=== PATIENT | female | born 1990 | race Two or more races ===

== ENCOUNTER 2023-10-17 09:10 | Outpatient (CLI) | payer OTHER | END 2023-10-17 09:12 | disposition home or self-care (01) | LOC: PRENATAL 09:10 | PROVIDERS: ATTEND Obstetrics & Gynecology Maternal & Fetal Medicine | DX: O26.843 Uterine size-date discrepancy, third trimester (principal); O36.8130 Decreased fetal movements, third trimester, not applicable or unspecified; Z3A.32 32 weeks gestation of pregnancy ==

== ENCOUNTER 2023-11-30 08:37 | Inpatient (IN) | payer OTHER ==
[2023-11-30] VITALS (9 sets, daily range): BP systolic 120–150; BP diastolic 71–89
[~2023-11-30] VITALS: Ht 167.6 cm; Wt 79.4 kg
[2023-11-30] MEDS ORDERED: RINGERS SOLUTION,LACTATED 1,000 ML IV SCH (09:00)
[2023-11-30] MEDS ORDERED: VALACYCLOVIR500 MG PO (09:05)
[2023-11-30] MEDS ORDERED: PRENATAL + DHA1 EAC1 PO (09:06)
[2023-11-30 09:42] LABS: PH,URINE 5.5 (5.0-8.0); URINE APPEARANCE Cloudy; URINE BILIRRUBIN Negative (NEGATIVE); URINE BLOOD Negative; URINE COLOR Yellow; URINE GLUCOSE Negative (NEGATIVE); URINE KETONE Trace (NEGATIVE); URINE LEUKOCYTE Negative; URINE NITRATE Negative; URINE PROTEIN Trace (NEGATIVE); URINE UROBILINOGEN 0.2 E.U./dl
[2023-11-30 09:42] LABS: HEMATOCRIT 35.3 % (36.0-45.00); HEMOGLOBIN 11.6 g/dL (12.0-15.00); MEAN CELL VOLUME 86.3 fL (80.00-100.00); MEAN CORPUSCULAR HEMOGLOBIN 28.3 pg (27.00-32.0); MEAN CORPUSCULAR HGB CONC 32.8 g/dl (32.0-36.0); PLATELET COUNT 239 K/uL (150-450); RED BLOOD COUNT 4.08 M/uL (4.00-6.00); RED CELL DISTRIBUTION WIDTH 13.4 % (11.5-14.5)
[2023-11-30 09:46] LABS: URINE BACTERIA 666.5 uL (0.0-1933); URINE EPITHELIAL CELLS 127.8 uL (0.0-38.8); URINE RBC 4.5 uL (0.0-20.8); URINE WBC 17.4 uL (0.0-23.2)
[2023-11-30 10:01] LABS: INR < 0.93; PARTIAL THROMBOPLASTIN TIME 24.7 SECONDS (22.0-34.0); PROTHROMBIN TIME 10.2 SECONDS (9.0-11.5)
[2023-11-30 10:05] LABS: ALBUMIN 2.7 gm/dL (3.4-5.0); BILIRUBIN TOTAL 0.27 mg/dL (0.3-1.2); CALCIUM 8.7 mg/dL (8.5-10.1); CREATININE SERUM 0.54 mg/dL (0.55-1.02); GFR 128.47; GLOBULINA 3.8 G/DL (2.4-3.5); POTASSIUM 3.75 mEq/L (3.5-5.1); TOTAL PROTEIN 6.5 gm/dL (6.4-8.2)
[2023-11-30] MEDS ORDERED: IBUprofen 400 MG TABLET PO PRN (12:00)
[2023-11-30] MEDS ORDERED: OXYTOCIN 1,000 ML IV SCH (12:00)
[2023-11-30] MEDS ORDERED: CHLORHEXIDINE GLUCONATE 120 ML BOTTLE TOP SCH (12:00)
[2023-11-30] MEDS ORDERED: ACETAMINOPHEN 500 MG GEL..CAP PO PRN (12:00)
[2023-11-30] MEDS ORDERED: LIDOCAINE HCL 1% 10ML VIAL IJ ONE (12:15)
[2023-11-30] MEDS ORDERED: ERYTHROMYCIN BASE OPHT 1GM EACH TUBE OP ONE (12:15)
[2023-12-01] VITALS: BP 117/74
[2023-12-01 08:28] VITALS: BP 116/75
[2023-12-01] MEDS ORDERED: Pramoxine HCl 15 GM FOAM RECTAL SCH (09:00)
[2023-12-01 13:56] VITALS: BP 139/81
[2023-12-01 16:26] VITALS: BP 118/78
[2023-12-02 00:30] VITALS: BP 134/86
[2023-12-02 05:00] VITALS: BP 130/80
[2023-12-02 08:17] VITALS: BP 117/67
[2023-12-02] MEDS ORDERED: DERMAGESIC CRE113 GM TOP (08:31)
[2023-12-02] MEDS ORDERED: NAPR500T14 PO (08:31)
== END 2023-12-02 10:46 | disposition home or self-care (01) | DRG 807 ==
LOC: LDR 08:37 → OB/GYN 08:37 → LDR 09:40 → OB/GYN 13:39
PROVIDERS: Obstetrics & Gynecology; ADMIT Obstetrics & Gynecology; ATTEND Obstetrics & Gynecology
PROC: 10E0XZZ Delivery of Products of Conception, External Approach (ICD-10-PCS; principal; 2023-11-30)
PROC: 0KQM0ZZ Repair Perineum Muscle, Open Approach (ICD-10-PCS; 2023-11-30)
PROC: 4A1HXCZ Monitoring of Products of Conception, Cardiac Rate, External Approach (ICD-10-PCS; 2023-11-30)
DX: O70.1 Second degree perineal laceration during delivery (principal); Z37.0 Single live birth; Z3A.38 38 weeks gestation of pregnancy; Z20.822 Contact with and (suspected) exposure to COVID-19